=== PATIENT | female | born 1950 | race Caucasian/White ===

== ENCOUNTER 2018-08-29 16:09 | Emergency (ER) | payer MEDICARE, BC ==
[~2018-08-29] VITALS: Ht 154.9 cm; Wt 75.0 kg
[~2018-08-29 16:09] MED LIST: ASPI-4 PO; CA C1TAB58 PO; CHOL2000 PO; CITA40TA11 PO; DICL100G15 TOP; FAMO40TA73 PO; LISI-642 PO; MONT10TA21 PO; NABU750T2 PO; OMEP20TA5 PO; PRAV10TA39 PO; VITA400C65 PO; VITC500T PO; [UNRECOGNIZED DRUG - CODE] PO
[2018-08-29 16:59] VITALS: BP 159/83
[2018-08-29] MEDS ORDERED: methylPREDNISolone sod succ 125mg/2ml vial IM ONE (17:10)
[2018-08-29] MEDS ORDERED: ketorolac tromethamine 15mg/ml inj. IM ONE (17:10)
[2018-08-29] MEDS ORDERED: orphenadrine citrate 60mg/2ml inj. IM ONE (17:10)
== END 2018-08-29 18:01 | disposition home or self-care (01) ==
LOC: ER 16:10
DX: M25.461 Effusion, right knee (principal); E78.00 Pure hypercholesterolemia, unspecified; K21.9 Gastro-esophageal reflux disease without esophagitis; Z90.710 Acquired absence of both cervix and uterus; Z88.2 Allergy status to sulfonamides; Z88.8 Allergy status to other drugs, medicaments and biological substances; Z79.82 Long term (current) use of aspirin
CPT/HCPCS: 96372; 99284; J1885; J2360; J2930